=== PATIENT | female | born 1950 | race Caucasian/White ===

== ENCOUNTER 2021-04-12 20:07 | Inpatient (IN) | payer OTHER ==
[~2021-04-12] VITALS: Ht 165.1 cm; Wt 167.9 kg
[2021-04-12] MEDS: buPROPion **SR TABLET** (ZYBAN) 150MG PO SCH (21:00)
[2021-04-12 21:29] LABS: BASO # 0.1 10^3/uL (0.0-0.2); BASO % 0.8 % (0.0-1.0); EOS # 0.1 10^3/uL (0.0-0.5); HEMATOCRIT 40.4 % (36.0-47.0); HEMOGLOBIN 12.5 g/dl (12.0-15.5); LYMPH # 1.2 10^3/uL (1.5-5.0); LYMPH % 10.3 % (24.0-44.0); MEAN CORPUSCULAR HEMOGLOBIN 27.3 pg (27.0-33.0); MEAN CORPUSCULAR HGB CONC 30.9 g/dl (32.0-36.5); MEAN CORPUSCULAR VOLUME 88.2 fl (80.0-96.0); MONO # 0.8 10^3/uL (0.0-0.8); MONO % 6.5 % (2.0-8.0); NEUTROPHILS # 9.6 10^3/uL (1.5-8.5); NEUTROPHILS % 81.1 % (36.0-66.0); PLATELET COUNT, AUTOMATED 246 10^3/uL (150-450); RED BLOOD COUNT 4.58 10^6/uL (4.00-5.40); WHITE BLOOD COUNT 11.9 10^3/uL (4.0-10.0)
[2021-04-12 21:59] LABS: ALBUMIN 3.5 GM/DL (3.2-5.2); ALT/SGPT 24 U/L (12-78); BILIRUBIN,DIRECT 0.1 MG/DL (0.0-0.2); BILIRUBIN,TOTAL 0.4 MG/DL (0.2-1.0); BLOOD UREA NITROGEN 12 MG/DL (7-18); C REACTIVE PROTEIN QUANTITATIV 0.32 MG/DL (0.00-0.30); CARBON DIOXIDE LEVEL 27 MEQ/L (21-32); CHLORIDE LEVEL 108 MEQ/L (98-107); CREATININE FOR GFR 0.69 MG/DL (0.55-1.30); ERYTHROCYTE SEDIMENTATION RATE 31 mm/hr (0-30); GLOMERULAR FILTRATION RATE > 60.0 (>45); GLUCOSE, FASTING 184 MG/DL (70-100); POTASSIUM SERUM 3.8 MEQ/L (3.5-5.1); SODIUM LEVEL 142 MEQ/L (136-145); TOTAL PROTEIN 7.5 GM/DL (6.4-8.2)
[2021-04-12] MEDS ORDERED: MOM 30ML SUSPENSION UDC PO PRN (23:30)
[2021-04-12] MEDS ORDERED: MAALOX 30 ML SUSP *UDC PO PRN (23:30)
--- NOTE | 2021-04-12 23:32 | HPEPDOC ---
[facility] Medical History & Physical Date of Admission Apr 12, 2021 Date of Service: Apr 12, 2021 Attending Physician: RONAN LANDRUM MD History and Physical TIME OF SERVICE: 11:42 PM CHIEF COMPLAINT: Lower extremity blisters HISTORY OF PRESENT ILLNESS: Ms. Rodríguez, a 70-year-old female, presented with complaints of open sores on the back of her lower legs for about 3 weeks which she has unsuccessfully been trying to manage with bacitracin ointment. She has a history of bilateral lower extremity lymphedema and used to receive lymphedema wrap, but has not done so recently. Both lower legs have been more swollen than usual. She has also developed burning pain affecting both lower extremities. She has not been attending her wound care because she cannot get rides to the appointments and the co-pays are too expensive. She denied having fevers chills nausea vomiting or diarrhea but mentioned that for over the last year she has been sleeping sitting up in a recliner. Whenever she tries to lie down flat she feels anxious and like she cannot breathe. She has chronic shortness of breath while trying to clean or walk more than 1 block. She denies missing any doses of her hydrochlorothiazide. REVIEW OF SYSTEMS: 10 point review of systems negative except as listed in HPI PAST MEDICAL/ SURGICAL HISTORY: Essential hypertension, IDDM, DLP, anxiety, depression COPD, aortic stenosis is undergoing work-up to determine if she is a candidate for TAVR, bilateral lower extremity lymphedema, class III obesity, cholecystectomy SOCIAL HISTORY: She smokes FAMILY HISTORY: Cancer ALLERGIES: Please see below. HOME MEDICATIONS: Please see below. PHYSICAL EXAMINATION: Vital Signs Date Time Temp Pulse Resp B/P (MAP) Pulse Ox O2 Delivery O2 Flow Rate FiO2 04/12/21 20:08 98.5 81 20 113/53 (73) 92 Room Air GEN: well nourished / well developed/ NAD INTEGUMENT: Both lower legs are red but not warm there are bullous round raised thickened lesions covering the anterior and posterior aspect of both lower legs and feet. On the posterior aspect of the lower legs there are small flat ulcers draining purulent fluid HEENT: lips acyanotic /mucus membranes pink but slightly dry/ sclera anicteric CVS: RRR/NMRG/her neck is short therefore I am unable to assess for JVP /she has bilateral lower extremity edema LUNGS: able to speak full sentences without stopping to take a breath / no cough ing / lungs are clear to auscultation bilaterally on room air ABDOMEN: Contour concave / soft & not tender with palpation MSK/EXTREMITIES: normocephalic / atraumatic / range of motion intact in all 4 extremities NEURO: CN 2-12 are grossly intact / speech is not dysarthric PSYCH: alert and oriented to person place and time/ able to understand and follow all commands LABORATORY DATA: IMAGING: n/a MICROBIOLOGY: Respiratory panel is pending ASSESSMENT: Ms. Rodríguez is a 70-year-old female with HTN, IDDM, DLP, anxiety, depression COPD, aortic stenosis, bilateral lower extremity lymphedema & obesity who is admitted for management of bilateral lower extremity lymphedema. PLAN: 1 Bilateral lymphedema Has likely become worse because she is not receiving lymphedema wraps and is on multiple medications that can cause peripheral edema. Plan: Admit to medical floor/discontinue hold amlodipine & naproxen which can cause lower extremity edema/ elevate legs / follow-up BNP / will consult PT for lymphedema wraps / we will ask the daytime team to consider consulting in the morning /I will hold off starting antibiotics because I do not think she has cellulitis because both lower extremities are affected and her ALT-70 score to diagnose lower extremity cellulitis is 1 (ALT-70 scores of 0-2 suggest that it is unlikely that a patient has true cellulitis and the likelihood of pseudo-cellulitis is greater than 83.3%.) 2 Lactic Acidosis She likely has lactic acidosis due to Metformin use and hypoxemia Plan: hold Metformin /continuous pulse ox 3 IDDM2 The burning in her legs may be due to neuropathy I will hold off starting gabapentin for now because it can also cause peripheral edema Plan: diabetic diet / f/u accuchecks / f/u A1C / hypoglycemia protocol / hold oral anti-glycemics / sliding scale insulin / she is on glargine 47 units BID for now we will start levemir 40 units BID /because she has diabetes and a BMI greater than 35 she is a candidate for bariatric surgery and can follow-up with her PCP for referral on an outpatient basis 4 Essential HTN Plan: Continue with lisinopril and hydrochlorothiazide 5 DLP Plan: Atorvastatin 6 Anxiety / depression Plan: Bupropion and escitalopram 7 COPD Plan: DuoNebs and fluticasone inhalers 8 Aortic stenosis Plan: Follow-up with cardiology team as scheduled 9 Tobacco abuse Plan: Smoking cessation education/nicotine patch 10 Class 3 obesity This complicates her care The mild hypoxemia ( 89% on room air) is likely due to undiagnosed NATHEN. She admits to feeling short of breath and choking at night, being told that she snores, and having unrestful sleep. Plan: She can follow-up with her PCP for referral for formal sleep study, referral to bariatric surgeon, and to discuss starting Saxenda which is indicated in individuals with a BMI greater than 30% with coexisting diabetes or hypertension or dyslipidemia to help with weight control as an adjunct to exercise DVT PROPHYLAXIS: lovenox (her Yonis score is 4 therefore pharmacological prophylaxis is indicated DISPOSITION: home after more than 2 midnight's stay /PFS consult has been placed for home PT and/or home RN Home Medications Scheduled Amlodipine Besylate (Amlodipine Besylate) 10 Mg Tablet, 10 MG PO QHS Atorvastatin Calcium (Atorvastatin Calcium) 20 Mg Tablet, 20 MG PO QHS Bupropion Hcl (Bupropion HCl Sr) 150 Mg Tab.sr.12h, 150 MG PO QHS Cholecalciferol (Vitamin D3) (Vitamin D3) 1,000 Unit Tablet, 1,000 UNITS PO DAILY Escitalopram Oxalate (Lexapro) 20 Mg Tablet, 20 MG PO DAILY Fluticasone/Umeclidin/Vilanter (Trelegy Ellipta 100-62.5-25) 1 Each Blst.w.dev, 1 PUFF INH DAILY Hydrochlorothiazide (Hydrochlorothiazide) 25 Mg Tablet, 25 MG PO DAILY Insulin Aspart (Novolog Flexpen) 100 Unit/1 Ml Insuln.pen, 27 UNITS SC WM Insulin Glargine,Hum.rec.anlog (Toujeo Solostar) 300 Unit/1 Ml Insuln.pen, 47 UNIT SC BID Lisinopril (Lisinopril) 40 Mg Tablet, 40 MG PO DAILY Metformin HCl (Metformin HCl) 500 Mg Tablet, 1,000 MG PO BID Scheduled PRN Naproxen Sodium (Aleve) 220 Mg Tablet, 220 MG PO BID PRN for PAIN LEVEL 1-5 Allergies Coded Allergies: No Known Allergies (Unverified , 04/12/21) A-FIB/CHADSVASC A-FIB History Current/History of A-Fib/PAF?: No Current PO Anticoag Therapy: No RONAN LANDRUM MD Apr 12, 2021 23:32
[2021-04-12] MEDS ORDERED: NOVOINJ3 SC (23:40)
[2021-04-12] MEDS ORDERED: METF-839 PO (23:40)
[2021-04-12] MEDS ORDERED: LEXA1TAB2 PO (23:40)
[2021-04-12] MEDS ORDERED: LISI40TA4 PO (23:40)
[2021-04-12] MEDS ORDERED: D31000TA2 PO (23:40)
[2021-04-12] MEDS ORDERED: TREL1AER INH (23:40)
[2021-04-12] MEDS ORDERED: AMLO1TAB25 PO (23:40)
[2021-04-12] MEDS ORDERED: HYDR-3490 PO (23:40)
[2021-04-12] MEDS ORDERED: TOUJ1.2I SC (23:40)
[2021-04-12] MEDS ORDERED: ATOR1TAB21 PO (23:40)
[2021-04-12] MEDS ORDERED: ALEV220T22 PO (23:40)
[2021-04-12] MEDS ORDERED: BUPR150T5 PO (23:40)
[2021-04-13] MEDS ORDERED: FUROSEMIDE 40MG/4ML VIAL (J1940) IV SCH
[2021-04-13 00:21] LABS: NT-PRO BNP 95 PG/ML (<125)
[2021-04-13 02:41] LABS: RSV AMPLIFICATION NEGATIVE (NEGATIVE)
[2021-04-13 07:26] LABS: HEMATOCRIT 40.6 % (36.0-47.0); HEMOGLOBIN 12.6 g/dl (12.0-15.5); MEAN CORPUSCULAR HEMOGLOBIN 27.2 pg (27.0-33.0); MEAN CORPUSCULAR VOLUME 87.5 fl (80.0-96.0); PLATELET COUNT, AUTOMATED 250 10^3/uL (150-450); RED BLOOD COUNT 4.64 10^6/uL (4.00-5.40); WHITE BLOOD COUNT 11.1 10^3/uL (4.0-10.0)
[2021-04-13 07:44] LABS: BLOOD UREA NITROGEN 10 MG/DL (7-18); CALCIUM LEVEL 9.2 MG/DL (8.8-10.2); CARBON DIOXIDE LEVEL 28 MEQ/L (21-32); CHLORIDE LEVEL 107 MEQ/L (98-107); CREATININE FOR GFR 0.59 MG/DL (0.55-1.30); GLOMERULAR FILTRATION RATE > 60.0 (>45); GLUCOSE, FASTING 133 MG/DL (70-100); POTASSIUM SERUM 3.9 MEQ/L (3.5-5.1); SODIUM LEVEL 143 MEQ/L (136-145)
[2021-04-13] MEDS: IPRATROPIUM 0.5MG/ALBUTEROL 2.5MG INH SOL UD 3ML (DUONEB) NEB SCH (08:09)
[2021-04-13] MEDS: FLUTICASONE HFA 110 MCG 12 GM INHALER (FLOVENT) INH SCH (08:09)
[2021-04-13] MEDS ORDERED: LEVEMIR (INSULIN DETEMIR) 1 UNITS/0.01ML SC SCH (09:00)
[2021-04-13] MEDS: NICOTINE 21MG/24HR 1 EA TRANSDERMAL TD SCH (10:17)
[2021-04-13] MEDS: ESCITALOPRAM OXALATE 10 MG TAB (LEXAPRO) PO SCH (10:18)
[2021-04-13] MEDS: ENOXAPARIN 40MG/0.4ML SYRINGE (J1650 PER 10MG) SC SCH (10:18)
[2021-04-13] MEDS: lisinopriL 40 MG TAB PO SCH (10:19)
[2021-04-13] MEDS: FUROSEMIDE 40 MG TAB PO SCH (11:17)
--- NOTE | 2021-04-13 11:18 | IPN ---
PROGRESS NOTE DATE: 04/13/2021 SUBJECTIVE: Meghana is seen in the ER in the interim bed, admitted with bilateral lymphedema with ruptured bullae and now open areas of bilateral posterior lower extremities. Has a history of Type 2 diabetes with neuropathy, hypertensive heart disease, hyperlipidemia, chronic anxiety and depression, COPD, aortic stenosis, tobacco abuse and morbid obesity. She has baseline hypoxemia, I assume she has right sided heart failure as the etiology of her edema. OBJECTIVE: VITAL SIGNS: Afebrile. Vital signs are stable. O2 saturation 88 to 90% on room air. GENERAL APPEARANCE: Morbidly obese, resting comfortably. HEENT: Unremarkable. NECK: No JVD. LUNGS: Clear. HEART: Regular rhythm, 1/6 systolic ejection murmur. ABDOMEN: Soft, nontender, no masses. EXTREMITIES: 2+ brawny edema of both lower extremities with pinkish tint to the lower legs which is chronic and unchanged. She has denuded bullae on the posterior aspect of both lower legs draining clear fluid. There is no purulence. LABORATORY DATA: White count is 11.1, hemoglobin is 12.6, platelets are 250,000. Sodium is 143, potassium is 3.9, BUN 10, creatinine 0.6, glucose 133. She had an elevated lactate on admission which remained unchanged and there is absolute no evidence that she is septic, does not need to be treated. She had a bunch of blood cultures ordered. IMPRESSION: 1. Bilateral lower extremity edema with open areas. This is a difficult problem. She is being seen by the lymphedema specialists in the Emergency Room. Patient is unable to physically put on compression stockings, she cannot reach down there to put them on and that will severely limit our ability to deal with this long-term. She is on diuretic therapy and I am changing her from Hydrochlorothiazide to Furosemide with a close eye on her electrolytes on a daily basis. Elevation of legs and salt restriction also reinforced with the patient. Will get a wound care consult from Dr. Alvarenga, the lymphedema specialist is also seeing her. 2. Diabetes with neuropathy. Her Metformin is on hold. I am going to reduce the dose of her basal insulin while she is on an enforced diabetic diet to avoid potential for hypoglycemia. The neuropathy can be addressed by her outpatient provider. 3. Hyperlipidemia, continue on atorvastatin 20 mg daily. 4. Anxiety/depression, continue Wellbutrin 50 mg q.h.s., Lexapro 20 mg daily. 5. Hypertensive heart disease, continue Lisinopril 40 mg daily, watch blood pressure on the augmented diuretic. 6. Tobacco abuse, the importance of smoking cessation discussed. She is on a nicotine patch currently. 7. Suspected cor pulmonale. Echocardiogram ordered. Strongly suggest outpatient attention to sleep apnea with outpatient sleep study advised.
[2021-04-13 14:00] VITALS: BP 134/61
[2021-04-13] MEDS: LEVEMIR (INSULIN DETEMIR) 1 UNITS/0.01ML SC SCH (20:28)
[2021-04-13] MEDS: ATORVASTATIN 20 MG TAB PO SCH (20:28)
[2021-04-13] MEDS: buPROPion **SR TABLET** (ZYBAN) 150MG PO SCH (21:15)
[2021-04-13 22:00] VITALS: BP 126/73
[2021-04-14 06:00] VITALS: BP 138/63
[2021-04-14 06:43] LABS: HEMATOCRIT 40.8 % (36.0-47.0); HEMOGLOBIN 12.7 g/dl (12.0-15.5); MEAN CORPUSCULAR HGB CONC 31.1 g/dl (32.0-36.5); MEAN CORPUSCULAR VOLUME 86.8 fl (80.0-96.0); PLATELET COUNT, AUTOMATED 277 10^3/uL (150-450); WHITE BLOOD COUNT 10.4 10^3/uL (4.0-10.0)
[2021-04-14 07:04] LABS: BLOOD UREA NITROGEN 11 MG/DL (7-18); CALCIUM LEVEL 9.2 MG/DL (8.8-10.2); CARBON DIOXIDE LEVEL 29 MEQ/L (21-32); CHLORIDE LEVEL 105 MEQ/L (98-107); CREATININE FOR GFR 0.62 MG/DL (0.55-1.30); GLOMERULAR FILTRATION RATE > 60.0 (>45); GLUCOSE, FASTING 111 MG/DL (70-100); MAGNESIUM LEVEL 2.2 MG/DL (1.8-2.4); POTASSIUM SERUM 3.8 MEQ/L (3.5-5.1); SODIUM LEVEL 140 MEQ/L (136-145)
[2021-04-14] MEDS: IPRATROPIUM 0.5MG/ALBUTEROL 2.5MG INH SOL UD 3ML (DUONEB) NEB SCH (07:41)
[2021-04-14] MEDS: FLUTICASONE HFA 110 MCG 12 GM INHALER (FLOVENT) INH SCH (07:41)
[2021-04-14] MEDS: NICOTINE 21MG/24HR 1 EA TRANSDERMAL TD SCH (08:27)
[2021-04-14] MEDS: ENOXAPARIN 40MG/0.4ML SYRINGE (J1650 PER 10MG) SC SCH (08:27)
[2021-04-14] MEDS: ESCITALOPRAM OXALATE 10 MG TAB (LEXAPRO) PO SCH (08:28)
[2021-04-14] MEDS: FUROSEMIDE 40 MG TAB PO SCH (08:28)
[2021-04-14] MEDS: lisinopriL 40 MG TAB PO SCH (08:28)
[2021-04-14] MEDS: LEVEMIR (INSULIN DETEMIR) 1 UNITS/0.01ML SC SCH ×2 (09:13→22:11)
--- NOTE | 2021-04-14 12:02 | IPN ---
PROGRESS NOTE DATE: 04/14/2021 SUBJECTIVE: Meghana is [facility] We started some diuresis yesterday and legs are about the same. OBJECTIVE: VITAL SIGNS: Afebrile. Vital signs stable. LUNGS: Clear. HEART: Regular rate and rhythm. ABDOMEN: Soft, nontender. EXTREMITIES: 2+ peripheral edema, venous stasis. Clear drainage from denuded bullae in the back of both legs. LABS: White count 10.4, hemoglobin 12.7. Electrolytes unremarkable. Potassium 3.8. BUN 11, creatinine 0.6. IMPRESSION AND PLAN: 1. Bilateral lower extremity edema with open denuded bullae. She was seen by lymphedema specialist yesterday. Recommends wearing double-layered Tubigrip and elevate legs as much as possible. Plan compression wrapping on Friday. Recommend home health with outpatient PT referral for lymphedema management. 2. Diabetes. Sliding scale insulin with coverage. Basal insulin dose reduced to avoid hypoglycemia. 3. Anxiety and depression. Continue regimen. 4. Hypertension. Continue lisinopril. We added furosemide for diuresis. Watch her blood pressure on this. 5. Suspected cor pulmonale. Echocardiogram ordered.
[2021-04-14 14:00] VITALS: BP 99/56
[2021-04-14 22:00] VITALS: BP 121/57
[2021-04-14] MEDS: ATORVASTATIN 20 MG TAB PO SCH (22:10)
[2021-04-14] MEDS: buPROPion **SR TABLET** (ZYBAN) 150MG PO SCH (22:10)
[2021-04-15 05:32] LABS: HEMATOCRIT 38.9 % (36.0-47.0); HEMOGLOBIN 12.1 g/dl (12.0-15.5); MEAN CORPUSCULAR HEMOGLOBIN 27.4 pg (27.0-33.0); MEAN CORPUSCULAR HGB CONC 31.1 g/dl (32.0-36.5); PLATELET COUNT, AUTOMATED 229 10^3/uL (150-450); RED BLOOD COUNT 4.42 10^6/uL (4.00-5.40); WHITE BLOOD COUNT 9.8 10^3/uL (4.0-10.0)
[2021-04-15 05:52] LABS: BLOOD UREA NITROGEN 12 MG/DL (7-18); CALCIUM LEVEL 8.7 MG/DL (8.8-10.2); CARBON DIOXIDE LEVEL 30 MEQ/L (21-32); CHLORIDE LEVEL 107 MEQ/L (98-107); CREATININE FOR GFR 0.59 MG/DL (0.55-1.30); GLOMERULAR FILTRATION RATE > 60.0 (>45); GLUCOSE, FASTING 143 MG/DL (70-100); MAGNESIUM LEVEL 2.1 MG/DL (1.8-2.4); POTASSIUM SERUM 3.9 MEQ/L (3.5-5.1); SODIUM LEVEL 144 MEQ/L (136-145)
[2021-04-15 06:00] VITALS: BP 141/65
[2021-04-15] MEDS: IPRATROPIUM 0.5MG/ALBUTEROL 2.5MG INH SOL UD 3ML (DUONEB) NEB SCH (07:19)
[2021-04-15] MEDS: FLUTICASONE HFA 110 MCG 12 GM INHALER (FLOVENT) INH SCH (07:19)
[2021-04-15] MEDS: ENOXAPARIN 40MG/0.4ML SYRINGE (J1650 PER 10MG) SC SCH (08:22)
[2021-04-15] MEDS: ESCITALOPRAM OXALATE 10 MG TAB (LEXAPRO) PO SCH (08:22)
[2021-04-15] MEDS: NICOTINE 21MG/24HR 1 EA TRANSDERMAL TD SCH (08:22)
[2021-04-15] MEDS: FUROSEMIDE 40 MG TAB PO SCH ×2 (08:22→16:54)
[2021-04-15] MEDS: lisinopriL 40 MG TAB PO SCH (08:22)
[2021-04-15] MEDS: LEVEMIR (INSULIN DETEMIR) 1 UNITS/0.01ML SC SCH ×2 (08:39→20:10)
[2021-04-15] MEDS: POTASSIUM CHLORIDE 10 MEQ SR TABLET PO SCH (09:22)
[2021-04-15 14:00] VITALS: BP 123/50
--- NOTE | 2021-04-15 15:04 | IPN ---
PROGRESS NOTE DATE: 04/15/2021 SUBJECTIVE: Meghana is here for lymphedema. She has not really diuresed very much. We only got 1 liter net diuresis yesterday. PHYSICAL EXAMINATION: VITAL SIGNS: Stable. LUNGS: Clear. HEART: Regular rate and rhythm. ABDOMEN: Obese, nontender. EXTREMITIES: Lymphedema is unchanged. LABORATORY DATA: CBC and CMP unremarkable. PLAN: Augment diuresis. Would like to get 1 to 1.5 liters per day. Also needs a fluid restriction. She says "I drink all day long," which will certainly work against her diuretic. Anticipate advanced wound care consultation tomorrow.
[2021-04-15] MEDS: ATORVASTATIN 20 MG TAB PO SCH (20:09)
[2021-04-15] MEDS: buPROPion **SR TABLET** (ZYBAN) 150MG PO SCH (20:09)
[2021-04-15 22:00] VITALS: BP 142/71
--- NOTE | 2021-04-15 22:48 | ECHO ---
ECHOCARDIOGRAM DATE OF PROCEDURE: 04/13/2021 Age: 70 Gender: Female Height: Weight: REFERRING PHYSICIAN: Dr. Marian Kovacs PATIENT LOCATION: Room 4235 REASON FOR TESTING: Congestive heart failure MEASUREMENTS: 2D Measurement IVS 1.5 cm LV 5.8 cm LVPW 1.5 cm LA 4.6 cm Aorta 3.3 cm DOPPLER MEASUREMENT Peak velocity across the aorta 2.5 m/s Peak velocity across the LVOT 0.72 m/s Mitral E 0.85 Mitral A 0.78 with ratio of 1.1 2D COMMENTS: 1. Moderately increased left ventricular wall thickness of a low normal global left ventricular systolic function. The left ventricle appeared to be normal in size. 2. Mildly dilated left atrium. The right atrium and right ventricle appear to be normal in limited views. 3. The atrial septum appeared to be normal without evidence of defect or shunt. 4. Normal aortic root. 5. Small pericardial effusion was noted, no evidence of cardiac tamponade. 6. Mildly calcified aortic valve with mildly restricted leaflet motion. Mildly calcified mitral annulus with normal anterior mitral valve leaflet motion. Normal tricuspid valve. The pulmonic valve and proximal pulmonary artery branches were not well visualized. 7. The inferior vena cava appeared to be mildly enlarged. Central venous pressure might be elevated. DOPPLER: No significant valvular regurgitation detected. Assessment of the left ventricular diastolic function appeared to be normal. IMPRESSION: 1. Low normal global left ventricular systolic function with moderate concentric left ventricular hypertrophy. Assessment of the left ventricular diastolic function appeared to be normal. 2. Aortic valve sclerosis with mild aortic stenosis, but no aortic regurgitation. 3. Mildly enlarged left atrium with mitral annular calcification. No evidence of mitral regurgitation or stenosis. 4. A small pericardial effusion was noted, no evidence of cardiac tamponade. 5. the inferior vena cava appeared to be mildly enlarged.
[2021-04-16 06:00] VITALS: BP 133/66
[2021-04-16 06:39] LABS: HEMATOCRIT 40.6 % (36.0-47.0); HEMOGLOBIN 12.7 g/dl (12.0-15.5); MEAN CORPUSCULAR HEMOGLOBIN 26.9 pg (27.0-33.0); MEAN CORPUSCULAR HGB CONC 31.3 g/dl (32.0-36.5); PLATELET COUNT, AUTOMATED 258 10^3/uL (150-450); RED BLOOD COUNT 4.72 10^6/uL (4.00-5.40); WHITE BLOOD COUNT 11.5 10^3/uL (4.0-10.0)
[2021-04-16 07:12] LABS: BLOOD UREA NITROGEN 13 MG/DL (7-18); CARBON DIOXIDE LEVEL 28 MEQ/L (21-32); CHLORIDE LEVEL 108 MEQ/L (98-107); CREATININE FOR GFR 0.62 MG/DL (0.55-1.30); GLOMERULAR FILTRATION RATE > 60.0 (>45); GLUCOSE, FASTING 137 MG/DL (70-100); MAGNESIUM LEVEL 2.1 MG/DL (1.8-2.4); POTASSIUM SERUM 4.1 MEQ/L (3.5-5.1); SODIUM LEVEL 143 MEQ/L (136-145)
[2021-04-16] MEDS: IPRATROPIUM 0.5MG/ALBUTEROL 2.5MG INH SOL UD 3ML (DUONEB) NEB SCH (07:38)
[2021-04-16] MEDS: FLUTICASONE HFA 110 MCG 12 GM INHALER (FLOVENT) INH SCH (07:38)
[2021-04-16] MEDS: ENOXAPARIN 40MG/0.4ML SYRINGE (J1650 PER 10MG) SC SCH (08:36)
[2021-04-16] MEDS: NICOTINE 21MG/24HR 1 EA TRANSDERMAL TD SCH (08:36)
[2021-04-16] MEDS: FUROSEMIDE 40 MG TAB PO SCH ×2 (08:36→17:15)
[2021-04-16] MEDS: POTASSIUM CHLORIDE 10 MEQ SR TABLET PO SCH (08:37)
[2021-04-16] MEDS: lisinopriL 40 MG TAB PO SCH (08:37)
[2021-04-16] MEDS: ESCITALOPRAM OXALATE 10 MG TAB (LEXAPRO) PO SCH (08:37)
[2021-04-16] MEDS: LEVEMIR (INSULIN DETEMIR) 1 UNITS/0.01ML SC SCH ×2 (09:08→21:11)
[2021-04-16] MEDS ORDERED: GLUCOSE 4GM CHEW TABLET PO PRN (10:25)
[2021-04-16] MEDS ORDERED: DEXTROSE 50% 50 ML SYRINGE IV PRN (10:25)
[2021-04-16] MEDS ORDERED: GLUCAGON INJ 1MG VIAL SC PRN (10:25)
--- NOTE | 2021-04-16 10:32 | IPN ---
PROGRESS NOTE DATE: 04/16/2021 SUBJECTIVE: Meghana has had a better diuresis. Her legs are less edematous. She has trouble elevating her legs because it puts pressure on the back of her legs in which she has ulcerations and they are weeping so she has not been able to do that. She has no fever, no chills. Advanced wound care consult planned for today. OBJECTIVE: VITAL SIGNS: Afebrile. LUNGS: Clear. HEART: Regular rhythm. ABDOMEN: Soft, nontender. EXTREMITIES: 2+ edema with venous stasis. The edema is significantly improved from admission. LABORATORY DATA: White count is 11.3, potassium is 4.5, renal function is stable. IMPRESSION: 1. Bilateral lymphedema with open areas. Advanced wound care consult is in progress. The lymphedema specialist has seen her. She is on aggressive furosemide regimen. Anticipate discharge tomorrow with instructions from wound care. 2. Diabetes neuropathy, I am going to restart her Metformin, stop sliding scale with insulin. 3. History of depression/anxiety, continue current regimen. 4. Hypertensive heart disease. Continue on current regimen. She is tolerating the diuresis without hypotension. 5. Tobacco abuse. She is on nicotine patch which is helping. 6. Suspected NATHEN. She should have an outpatient workup for this. 7. Suspected cor pulmonale. She had an echocardiogram done, left ventricular ejection fraction is normal (low normal but still normal). Aortic stenosis. Small pericardial effusion which is not hemodynamically significant. Left atrial dilatation of 46 mm. Pulmonary artery pressures could not be visualized. Strongly suspect cor pulmonale related to NATHEN and obesity. 8. Anticipate discharge tomorrow.
[2021-04-16] MEDS: metFORMIN (GLUCOPHAGE) 500MG TAB PO SCH ×2 (11:11→20:03)
[2021-04-16] MEDS: HumaLOG INSULIN (NovoLOG) PER UNIT SC SCH ×2 (12:59→17:16)
[2021-04-16 14:00] VITALS: BP 123/54
--- NOTE | 2021-04-16 17:37 | CR ---
ADVANCED WOUND CARE CONSULTATION VIA TELEMEDICINE DATE: 04/16/2021 CONSULTATION REQUESTED BY: Ever Tatum M.D. REASON FOR CONSULTATION: Wound care suggestions for lower extremity wounds. Wound care telemedicine provides a visual assessment of a wound or wounds without the benefit of physical examination. It can assist in establishing a diagnosis and etiology. This allows for initial treatment plan. As wounds often change, it may be necessary to modify the original care. Our recommendations are periodic wound reassessment to monitor treatment. Failure to comply may result in nonhealing of the wound, possible complications and/or a poor outcome. The recommendations given will serve as a treatment option. As I will not be following this patient, this care plan will require the attending physician to give and sign the orders. Upon discharge, outpatient discharge can be scheduled at our wound care center. Patient identified. Verbal consent obtained. HISTORY OF PRESENT ILLNESS: A 70-year-old morbidly obese female admitted for lower extremity discomfort and drainage from both right and left posterior calf wounds. The patient has 4+ chronic edema, sleeps in a recliner and is morbidly obese which severely limits her ambulation. Patient has venous stasis disease with ulceration. At this point, these wounds are fairly superficial, but do involve both right and left lower extremities, more prominent on the left. There is cobblestoning formation of the skin, indicating chronic lymphedema which is often seen in chronic venous disease. TREATMENT RECOMMENDATIONS: Cleanse both wounds with Vashe wound cleanser for 10 minutes. Rinse with saline and pat dry. Use Cavilon advanced skin prep treatment applying to the periwounds of both right and left lower extremities. Follow this with an Optilock dressing. These can be secured with a Kerlix and then Tubigrip stockings should be applied. Dressing should be changed on an every other day basis or as needed. If the Optilock becomes saturated, a Hydrofera Blue transfer foam can be applied first and then covered with the Optilock. Patient should sleep in a bed in mild Trendelenburg position, a dietitian should see the patient regarding her weight, and the patient can be seen in our clinic for followup as outpatient, if she so desires. PERRY
[2021-04-16] MEDS: ATORVASTATIN 20 MG TAB PO SCH (20:03)
[2021-04-16] MEDS: buPROPion **SR TABLET** (ZYBAN) 150MG PO SCH (20:03)
[2021-04-16] MEDS ORDERED: HumaLOG INSULIN (NovoLOG) PER UNIT SC SCH (21:00)
[2021-04-16 22:00] VITALS: BP 135/62
[2021-04-17] MEDS: ACETAMINOPHEN TAB 650MG DOSE (2X325MG) PO PRN ×2 (00:30→05:28)
[2021-04-17 06:00] VITALS: BP 147/71
[2021-04-17 06:26] LABS: HEMATOCRIT 37.6 % (36.0-47.0); HEMOGLOBIN 11.7 g/dl (12.0-15.5); MEAN CORPUSCULAR HEMOGLOBIN 27.1 pg (27.0-33.0); MEAN CORPUSCULAR HGB CONC 31.1 g/dl (32.0-36.5); PLATELET COUNT, AUTOMATED 234 10^3/uL (150-450); RED BLOOD COUNT 4.32 10^6/uL (4.00-5.40); WHITE BLOOD COUNT 10.8 10^3/uL (4.0-10.0)
[2021-04-17 06:47] LABS: BLOOD UREA NITROGEN 14 MG/DL (7-18); CALCIUM LEVEL 8.7 MG/DL (8.8-10.2); CARBON DIOXIDE LEVEL 29 MEQ/L (21-32); CHLORIDE LEVEL 107 MEQ/L (98-107); CREATININE FOR GFR 0.62 MG/DL (0.55-1.30); GLOMERULAR FILTRATION RATE > 60.0 (>45); GLUCOSE, FASTING 129 MG/DL (70-100); POTASSIUM SERUM 3.6 MEQ/L (3.5-5.1); SODIUM LEVEL 141 MEQ/L (136-145)
[2021-04-17] MEDS: FLUTICASONE HFA 110 MCG 12 GM INHALER (FLOVENT) INH SCH (07:50)
[2021-04-17] MEDS: IPRATROPIUM 0.5MG/ALBUTEROL 2.5MG INH SOL UD 3ML (DUONEB) NEB SCH (07:51)
[2021-04-17] MEDS: ENOXAPARIN 40MG/0.4ML SYRINGE (J1650 PER 10MG) SC SCH (08:16)
[2021-04-17] MEDS: HumaLOG INSULIN (NovoLOG) PER UNIT SC SCH ×2 (08:17→13:04)
[2021-04-17] MEDS: LEVEMIR (INSULIN DETEMIR) 1 UNITS/0.01ML SC SCH (08:17)
[2021-04-17] MEDS: NICOTINE 21MG/24HR 1 EA TRANSDERMAL TD SCH (08:18)
[2021-04-17] MEDS: POTASSIUM CHLORIDE 10 MEQ SR TABLET PO SCH (08:19)
[2021-04-17] MEDS: lisinopriL 40 MG TAB PO SCH (08:19)
[2021-04-17] MEDS: ESCITALOPRAM OXALATE 10 MG TAB (LEXAPRO) PO SCH (08:19)
[2021-04-17] MEDS: FUROSEMIDE 40 MG TAB PO SCH (08:19)
[2021-04-17] MEDS: metFORMIN (GLUCOPHAGE) 500MG TAB PO SCH (08:19)
--- NOTE | 2021-04-17 12:58 | DS.PDOC ---
Discharge Summary General Date of Admission Apr 12, 2021 at 23:57 Date of Discharge 04/17/21 Attending Physician: BECKY OJEDA MD Discharge Summary PROCEDURES PERFORMED DURING STAY: None. ADMITTING DIAGNOSES: 1. Bilateral lower extremity lymphedema. DISCHARGE DIAGNOSES: 1. Bilateral lower extremity lymphedema, depression, anxiety, hypertensive heart disease, cor pulmonale, diabetic neuropathy, diabetes mellitus type COMPLICATIONS/CHIEF COMPLAINT: Lymphedema. HISTORY OF PRESENT ILLNESS: 70 years old obese female admitted with chief complaints of mild pedal edema which is most likely bilateral lymphedema and advanced wound care consult was called patient also was started on diuresis she have achieved maximum good results and she can be discharged home today with follow-up with PCP in 1 week.. HOSPITAL COURSE: [ # Bilateral lymphedema with open areas. Advanced wound care consult is in progress. The lymphedema specialist has seen her. She is on aggressive furosemide regimen. Anticipate discharge today with instructions from wound care. # Diabetes neuropathy, patient restarted back on her Metformin, stop sliding scale with insulin. # History of depression/anxiety, continue current regimen. # Hypertensive heart disease. Continue on current regimen. She is tolerating the diuresis without hypotension. #Tobacco abuse. She is on nicotine patch which is helping. # Suspected NATHEN. She should have an outpatient workup for this. # Suspected cor pulmonale. She had an echocardiogram done, left ventricular ejection fraction is normal (low normal but still normal). Aortic stenosis. Small pericardial effusion which is not hemodynamically significant. Left atrial dilatation of 46 mm. Pulmonary artery pressures could not be visualized. Strongly suspect cor pulmonale related to NATHEN and obesity. #Anticipate discharge today and follow-up with PCP in 1 week DISCHARGE MEDICATIONS: Please see below. ALLERGIES: Please see below. PHYSICAL EXAMINATION ON DISCHARGE: VITAL SIGNS: Please see below. GENERAL: Alert oriented x3 no apparent distress HEENT: PERRLA extraocular muscles intact NECK: Supple no JVD no lymphadenopathy CARDIOVASCULAR EXAMINATION: S1-S2 regular no murmur or thrill heave RESPIRATORY EXAMINATION: Clear to A&P ABDOMINAL EXAMINATION: Soft nontender bowel sounds present no organomegaly EXTREMITIES: Bilateral pedal edema SKIN: Some ulceration at bilateral lower extremities NEUROLOGICAL EXAMINATION: No focal motor or sensory deficits PSYCHIATRIC EXAMINATION: Normal LABORATORY DATA: Please see below. IMAGING: As per radiology reports PROGNOSIS: Good ACTIVITY: As tolerated. DIET: As taken previously preadmission DISCHARGE PLAN: Discharge home follow-up with PCP in 1 week DISPOSITION: . Home DISCHARGE INSTRUCTIONS: 1. As per discharge directions. ITEMS TO FOLLOWUP ON ON OUTPATIENT: 1. Follow-up with PCP in 1 week. DISCHARGE CONDITION: Stable. TIME SPENT ON DISCHARGE: 38 minutes. Vital Signs/I&Os Vital Signs Date Time Temp Pulse Resp B/P (MAP) Pulse Ox O2 Delivery O2 Flow Rate FiO2 04/17/21 06:00 97.2 64 18 147/71 (96) 94 Room Air I&O- Last 24 Hours up to 6 AM 04/17/21 06:00 Intake Total 1110 ml Output Total 2200 ml Balance -1090 ml Laboratory Data Labs 24H Laboratory Tests 2 04/16/21 16:43: Bedside Glucose (Misc Panel) 179H 04/16/21 20:15: Bedside Glucose (Misc Panel) 213H 04/17/21 06:10: Nucleated Red Blood Cells % (auto) 0.0, Anion Gap 5L, Glomerular Filtration Rate > 60.0, Calcium Level 8.7L, Magnesium Level 2.0 04/17/21 12:06: Bedside Glucose (Misc Panel) 189H CBC/BMP Laboratory Tests 04/17/21 06:10 FSBS Laboratory Tests Test 04/16/21 16:43 04/16/21 20:15 04/17/21 12:06 Range/Units Bedside Glucose (Misc Panel) 179 213 189 80-115 MG/DL Microbiology Microbiology 04/12/21 Blood Culture - Preliminary, Resulted No Growth after 72 hours. All specime... 04/12/21 Blood Culture - Preliminary, Resulted No Growth after 72 hours. All specime... 04/12/21 Blood Culture - Preliminary, Resulted No Growth after 72 hours. All specime... 04/12/21 Blood Culture - Preliminary, Resulted No Growth after 72 hours. All specime... Discharge Medications Scheduled Amlodipine Besylate (Amlodipine Besylate) 10 Mg Tablet, 10 MG PO QHS, (Reported) Atorvastatin Calcium (Atorvastatin Calcium) 20 Mg Tablet, 20 MG PO QHS, (Reported) Bupropion Hcl (Bupropion HCl Sr) 150 Mg Tab.sr.12h, 150 MG PO QHS, (Reported) Cholecalciferol (Vitamin D3) (Vitamin D3) 1,000 Unit Tablet, 1,000 UNITS PO DAILY, (Reported) Escitalopram Oxalate (Lexapro) 20 Mg Tablet, 20 MG PO DAILY, (Reported) Fluticasone/Umeclidin/Vilanter (Trelegy Ellipta 100-62.5-25) 1 Each Blst.w.dev, 1 PUFF INH DAILY, (Reported) Hydrochlorothiazide (Hydrochlorothiazide) 25 Mg Tablet, 25 MG PO DAILY, (Reported) Insulin Aspart (Novolog Flexpen) 100 Unit/1 Ml Insuln.pen, 27 UNITS SC WM, (Reported) Insulin Glargine,Hum.rec.anlog (Toujeo Solostar) 300 Unit/1 Ml Insuln.pen, 47 UNIT SC BID, (Reported) Lisinopril (Lisinopril) 40 Mg Tablet, 40 MG PO DAILY, (Reported) Metformin HCl (Metformin HCl) 500 Mg Tablet, 1,000 MG PO BID, (Reported) Scheduled PRN Naproxen Sodium (Aleve) 220 Mg Tablet, 220 MG PO BID PRN for PAIN LEVEL 1-5, (Reported) Allergies Coded Allergies: No Known Allergies (Unverified , 04/12/21) BECKY OJEDA MD Apr 17, 2021 12:58
[2021-04-17] MEDS ORDERED: FURO40TA2 PO (13:02)
[2021-04-17] MEDS ORDERED: NICO21PAT TD (13:02)
[2021-04-17] MEDS ORDERED: KLOR10TA76 PO (13:02)
== END 2021-04-17 13:39 | disposition home health service (06) | DRG 607 ==
LOC: M ED 20:07 → M ED INP 20:08 → UNDOADMOB 20:08 → M ED INP 23:57 → ENRESERV 04-13 12:22 → M MSPAV 04-13 13:05
PROVIDERS: ADMIT Internal Medicine; ATTEND Internal Medicine
DX: I89.0 Lymphedema, not elsewhere classified (principal); E87.2 Acidosis; Z68.43 Body mass index [BMI] 50.0-59.9, adult; E11.40 Type 2 diabetes mellitus with diabetic neuropathy, unspecified; E66.01 Morbid (severe) obesity due to excess calories; J44.9 Chronic obstructive pulmonary disease, unspecified; G47.33 Obstructive sleep apnea (adult) (pediatric); I27.81 Cor pulmonale (chronic); I83.008 Varicose veins of unspecified lower extremity with ulcer other part of lower leg; F41.9 Anxiety disorder, unspecified; F32.9 Major depressive disorder, single episode, unspecified; I11.9 Hypertensive heart disease without heart failure; F17.200 Nicotine dependence, unspecified, uncomplicated; Z79.899 Other long term (current) drug therapy; I35.0 Nonrheumatic aortic (valve) stenosis; Z79.4 Long term (current) use of insulin

== ENCOUNTER 2022-09-11 16:23 | Emergency (ER) | payer OTHER ==
[~2022-09-11] VITALS: Ht 165.1 cm; Wt 154.1 kg
[~2022-09-11 16:23] MED LIST: ALEV220T22 PO; AMLO1TAB25 PO; ATOR1TAB21 PO; BUPR-71 PO; FURO40TA2 PO; HYDR-3490 PO; LEXA1TAB2 PO; LISI40TA4 PO; METF-839 PO; NICO21PAT TD; NOVOINJ3 SC; POTA-136 PO; TOUJ1.2I SC; TREL1AER INH; VITA100093 PO
[2022-09-11] MEDS ORDERED: ASPIRIN 81MG CHEW TABLET PO ONE (16:35)
[2022-09-11] MEDS ORDERED: AMIODARONE HCL 150 MG in IV 1 EA IV STA ×2 (17:00→17:56)
[2022-09-11 17:12] LABS: BASO # 0.1 10^3/uL (0.0-0.2); EOS # 0.2 10^3/uL (0.0-0.5); EOS % 1.9 % (0.0-3.0); HEMATOCRIT 41.5 % (36.0-47.0); LYMPH # 1.1 10^3/uL (1.5-5.0); LYMPH % 14.2 % (24.0-44.0); MEAN CORPUSCULAR HGB CONC 31.3 g/dl (32.0-36.5); MEAN CORPUSCULAR VOLUME 86.3 fl (80.0-96.0); MONO # 1.2 10^3/uL (0.0-0.8); MONO % 15.3 % (2.0-8.0); NEUTROPHILS # 5.4 10^3/uL (1.5-8.5); NEUTROPHILS % 67.2 % (36.0-66.0); PLATELET COUNT, AUTOMATED 258 10^3/uL (150-450); RED BLOOD COUNT 4.81 10^6/uL (4.00-5.40); WHITE BLOOD COUNT 8.1 10^3/uL (4.0-10.0)
[2022-09-11 17:27] LABS: INR 1.1; PROTHROMBIN TIME 14.4 SECONDS (12.5-14.5)
[2022-09-11 17:35] LABS: CK-MB VALUE MASS 3.9 NG/ML (<3.6)
[2022-09-11 17:36] LABS: ALBUMIN 3.4 G/DL (3.2-5.2); ALKALINE PHOSPHATASE 56 U/L (46-116); ALT/SGPT 37 U/L (7.0-40); AST/SGOT 69 U/L (<34); BILIRUBIN,DIRECT 0.2 MG/DL (<0.4); BILIRUBIN,TOTAL 0.5 MG/DL (0.3-1.2); BLOOD UREA NITROGEN 11 MG/DL (9-23); CALCIUM LEVEL 9.5 MG/DL (8.3-10.6); CARBON DIOXIDE LEVEL 27 MMOL/L (20-31); CHLORIDE LEVEL 106 MMOL/L (98-107); CPK CREATINE PHOSPHOKINASE 1091 U/L (34-145); CREATININE FOR GFR 0.65 MG/DL (0.55-1.30); GLOMERULAR FILTRATION RATE > 60.0 (>39); GLUCOSE, FASTING 135 MG/DL (74-106); MB/CK RELATIVE INDEX 0.35 (< OR =4); POTASSIUM SERUM 3.2 MMOL/L (3.5-5.1); SODIUM LEVEL 143 MMOL/L (136-145); TOTAL PROTEIN 6.7 G/DL (5.7-8.2)
[2022-09-11 17:38] LABS: THYROID STIMULATING HORMONE 1.891 uIU/ML (0.55-4.78)
[2022-09-11 17:39] LABS: FREE T4 1.25 NG/DL (0.89-1.76)
[2022-09-11] MEDS ORDERED: POTASSIUM CHLORIDE 10MEQ SR TABLET PO ONE (17:40)
[2022-09-11] MEDS ORDERED: ISOVUE-370 76% 100ML VIAL As Ordered ONE (17:47)
[2022-09-11 17:59] LABS: LIPASE 42 U/L (12-53)
[2022-09-11 18:56] LABS: CK-MB VALUE MASS 5.5 NG/ML (<3.6)
[2022-09-11 18:59] LABS: MB/CK RELATIVE INDEX 0.53 (< OR =4)
[2022-09-11] MEDS ORDERED: HEPARIN DRIP 25,000 UNITS in IV 1 EA IV SCH (19:55)
[2022-09-11 20:17] LABS: PARTIAL THROMBOPLASTIN TIME 28.5 SECONDS (24.8-34.2)
[2022-09-11 21:21] LABS: RSV AMPLIFICATION NEGATIVE (NEGATIVE)
[2022-09-11 21:45] LABS: CK-MB VALUE MASS 10.3 NG/ML (<3.6)
[2022-09-11 21:46] LABS: MB/CK RELATIVE INDEX 1.08 (< OR =4)
[2022-09-12 00:16] VITALS: BP 151/88
== END 2022-09-12 00:20 | disposition short-term general hospital (02) ==
LOC: M ED 16:23 → EDBD 16:23 → EDSEX 16:23 → M ED 09-12 00:20
DX: I21.4 Non-ST elevation (NSTEMI) myocardial infarction (principal); E87.6 Hypokalemia; I48.0 Paroxysmal atrial fibrillation; I45.10 Unspecified right bundle-branch block; I44.4 Left anterior fascicular block; E11.9 Type 2 diabetes mellitus without complications; E78.5 Hyperlipidemia, unspecified; F41.9 Anxiety disorder, unspecified; F32.A Depression, unspecified; J44.9 Chronic obstructive pulmonary disease, unspecified; F17.200 Nicotine dependence, unspecified, uncomplicated; E66.9 Obesity, unspecified; Z79.4 Long term (current) use of insulin; Z79.811 Long term (current) use of aromatase inhibitors; Z79.899 Other long term (current) drug therapy
CPT/HCPCS: 71045; 71275; 80048; 80076; 82550; 82553; 83690; 84439; 84443; 84484; 85025; 85610; 85730; 87631; 93005; 93041; 94760; 96365; 96375; 99285; J0282; J1644; Q9967

== ENCOUNTER 2022-11-09 14:59 | Inpatient (IN) | payer OTHER ==
[~2022-11-09] VITALS: Ht 165.1 cm; Wt 144.0 kg
[2022-11-09] MEDS ORDERED: ACETAMINOPHEN TAB 650MG DOSE (2X325MG) PO ONE (15:25)
[2022-11-09 16:03] LABS: BASO # 0.1 10^3/uL (0.0-0.2); BASO % 0.5 % (0.0-1.0); EOS % 0.1 % (0.0-3.0); HEMATOCRIT 39.6 % (36.0-47.0); HEMOGLOBIN 12.5 g/dl (12.0-15.5); LYMPH # 0.8 10^3/uL (1.5-5.0); LYMPH % 4.8 % (24.0-44.0); MEAN CORPUSCULAR HEMOGLOBIN 28.4 pg (27.0-33.0); MEAN CORPUSCULAR HGB CONC 31.6 g/dl (32.0-36.5); MONO # 1.5 10^3/uL (0.0-0.8); MONO % 9.1 % (2.0-8.0); NEUTROPHILS # 14.1 10^3/uL (1.5-8.5); PLATELET COUNT, AUTOMATED 163 10^3/uL (150-450); WHITE BLOOD COUNT 16.5 10^3/uL (4.0-10.0)
[2022-11-09 16:25] LABS: ALBUMIN 3.3 G/DL (3.2-5.2); ALKALINE PHOSPHATASE 58 U/L (46-116); ALT/SGPT 19 U/L (7.0-40); AST/SGOT 72 U/L (<34); BILIRUBIN,DIRECT 0.4 MG/DL (<0.4); BILIRUBIN,TOTAL 1.2 MG/DL (0.3-1.2); BLOOD UREA NITROGEN 16 MG/DL (9-23); CALCIUM LEVEL 8.9 MG/DL (8.3-10.6); CARBON DIOXIDE LEVEL 25 MMOL/L (20-31); CHLORIDE LEVEL 101 MMOL/L (98-107); CREATININE FOR GFR 0.63 MG/DL (0.55-1.30); GLOMERULAR FILTRATION RATE > 60.0 (>39); GLUCOSE, FASTING 112 MG/DL (74-106); SODIUM LEVEL 139 MMOL/L (136-145); TOTAL PROTEIN 6.8 G/DL (5.7-8.2)
[2022-11-09 16:50] LABS: ERYTHROCYTE SEDIMENTATION RATE 35 mm/hr (0-30)
[2022-11-09] MEDS: NS 1,000 ML IV SCH ×2 (18:45→22:24)
[2022-11-09] MEDS ORDERED: VANCOMYCIN HCL 2,000 MG in D5W 500 ML IV ONE (18:55)
[2022-11-09] MEDS ORDERED: CEFEPIME HCL 1 GM in D5W MINI-BAG PLUS 50 ML IV ONE (18:55)
[2022-11-09] MEDS ORDERED: LEXA1TAB PO (19:22)
[2022-11-09] MEDS ORDERED: LISI10TA22 PO (19:22)
[2022-11-09] MEDS ORDERED: FURO40TA2 PO (19:22)
[2022-11-09] MEDS ORDERED: ASPI81TA26 PO (19:23)
[2022-11-09] MEDS ORDERED: ALBU8.5H INH (19:23)
[2022-11-09] MEDS ORDERED: METO1TAB7 PO (19:23)
[2022-11-09] MEDS ORDERED: MED REC COMMENT (19:24)
[2022-11-09] MEDS ORDERED: HOME MED LIST COMPLETE! XX SCH (19:30)
[2022-11-09] MEDS ORDERED: METOCLOPRAMIDE INJ 10MG/2ML VIAL IV ONE (20:00)
[2022-11-09] MEDS ORDERED: VANCOMYCIN HCL 1,000 MG, VIAL MATE ADAPTER 1 EACH in NS 250 ML IV ONE (20:00)
[2022-11-09] MEDS: ACETAMINOPHEN TAB 650MG DOSE (2X325MG) PO PRN ×2 (21:28→23:25)
[2022-11-09] MEDS: VANCOMYCIN HCL 1,000 MG, VIAL MATE ADAPTER 1 EACH in NS 250 ML IV ONE ×2 (21:29→22:25)
[2022-11-09 22:00] VITALS: BP 121/82
[2022-11-09] MEDS ORDERED: ALBUTEROL 90 MCG/ACT 8GM HFA INHALER INH PRN (22:10)
[2022-11-09] MEDS: LEVEMIR (INSULIN DETEMIR) 1 UNITS/0.01ML SC SCH (22:10)
[2022-11-09] MEDS ORDERED: VANCOMYCIN HCL 750 MG, VIAL MATE ADAPTER 1 EACH in NS 250 ML IV SCH (22:15)
[2022-11-09] MEDS ORDERED: LACRILUBE (AKWA TEARS) OPHTH OINT 3.5GM OU ONE (22:20)
[2022-11-09] MEDS ORDERED: GENTAMICIN 120 MG in D5W 50 ML IV ONE (22:30)
[2022-11-09] MEDS ORDERED: NS 1,000 ML IV SCH (23:00)
[2022-11-09] MEDS: HEPARIN SOD (PORCINE) 5000UNITS/ML 1ML VIAL/SYRINGE SQ SCH (23:01)
[2022-11-10] VITALS (17 sets, daily range): BP systolic 116–135; BP diastolic 54–63; O2SAT 91–96
[2022-11-10] MEDS ORDERED: CEFEPIME HCL 2 GM in D5W MINI-BAG PLUS 50 ML IV SCH (03:00)
[2022-11-10] MEDS: HEPARIN SOD (PORCINE) 5000UNITS/ML 1ML VIAL/SYRINGE SQ SCH ×3 (05:36→21:20)
[2022-11-10] MEDS ORDERED: ISOVUE-370 76% 100ML VIAL As Ordered ONE (08:35)
[2022-11-10] MEDS ORDERED: rifAMPin 150MG CAPSULE PO SCH (09:00)
[2022-11-10] MEDS: LEVEMIR (INSULIN DETEMIR) 1 UNITS/0.01ML SC SCH ×2 (09:00→20:02)
[2022-11-10] MEDS: VANCOMYCIN HCL 750 MG, VIAL MATE ADAPTER 1 EACH in D5W 250 ML IV SCH ×2 (09:35→21:20)
[2022-11-10] MEDS: ACETAMINOPHEN TAB 650MG DOSE (2X325MG) PO PRN (09:35)
[2022-11-10] MEDS: ASPIRIN 81MG ENTERIC TABLET PO SCH (09:36)
[2022-11-10 11:48] LABS: GENTAMICIN LEVEL RANDOM 1.8 UG/ML
[2022-11-10] MEDS ORDERED: DEXTROSE 50% 50ML SYRINGE IV PRN (11:55)
[2022-11-10] MEDS ORDERED: GLUCOSE 4GM CHEW TABLET PO PRN (11:55)
[2022-11-10] MEDS ORDERED: GLUCAGON INJ 1MG VIAL SC PRN (11:55)
[2022-11-10] MEDS ORDERED: GENTAMICIN IV SCH (12:00)
[2022-11-10] MEDS ORDERED: D5W IV SCH (12:00)
[2022-11-10] MEDS: VANCOMYCIN HCL 500 MG in D5W MINI-BAG PLUS 100 ML IV SCH ×2 (12:11→20:01)
[2022-11-10] MEDS: IPRATROPIUM 0.5MG/ALBUTEROL 2.5MG INH SOL UD 3ML (DUONEB) NEB PRN (12:19)
[2022-11-10] MEDS: IPRATROPIUM 0.5MG/ALBUTEROL 2.5MG INH SOL UD 3ML (DUONEB) NEB SCH ×2 (12:19→19:18)
[2022-11-10] MEDS: predniSONE 20 MG TAB PO SCH (12:40)
[2022-11-10] MEDS: LACTOBACILLUS ACIDOPHILUS CAP (BACID) PO SCH (12:41)
[2022-11-10] MEDS: INSULIN LISPRO (NovoLOG) PER UNIT SC SCH ×3 (12:41→20:03)
[2022-11-10] MEDS ORDERED: AMPICILLIN SOD 2 GM in D5W MINI-BAG PLUS 100 ML IV SCH (13:00)
[2022-11-10] MEDS: ESCITALOPRAM OXALATE 10 MG TAB (LEXAPRO) PO SCH (14:07)
[2022-11-10] MEDS: NYSTATIN 100,000 UNITS/GM TOPICAL PWD 15GM TOP SCH ×2 (14:07→21:19)
[2022-11-10] MEDS: buPROPion **SR TABLET** (ZYBAN) 150MG PO SCH ×2 (14:07→20:02)
[2022-11-10] MEDS: METOPROLOL SUCC (TopROL XL) 50MG **XL** TAB PO SCH (14:07)
[2022-11-10] MEDS: AMPICILLIN SOD 2 GM in D5W MINI-BAG PLUS 100 ML IV SCH ×3 (14:12→22:40)
[2022-11-10] MEDS: ATORVASTATIN 20 MG TAB PO SCH (20:02)
[2022-11-11] VITALS (21 sets, daily range): BP systolic 113–152; BP diastolic 56–72; O2SAT 91–97
[2022-11-11] MEDS: ACETAMINOPHEN TAB 650MG DOSE (2X325MG) PO PRN (00:29)
[2022-11-11] MEDS: IPRATROPIUM 0.5MG/ALBUTEROL 2.5MG INH SOL UD 3ML (DUONEB) NEB SCH ×4 (01:03→20:44)
[2022-11-11] MEDS: AMPICILLIN SOD 2 GM in D5W MINI-BAG PLUS 100 ML IV SCH ×6 (01:19→21:32)
[2022-11-11 01:59] LABS: ALBUMIN 2.6 G/DL (3.2-5.2); ALKALINE PHOSPHATASE 58 U/L (46-116); ALT/SGPT 21 U/L (7.0-40); AST/SGOT 49 U/L (<34); BILIRUBIN,TOTAL 0.5 MG/DL (0.3-1.2); BLOOD UREA NITROGEN 14 MG/DL (9-23); CALCIUM LEVEL 8.5 MG/DL (8.3-10.6); CARBON DIOXIDE LEVEL 26 MMOL/L (20-31); CHLORIDE LEVEL 104 MMOL/L (98-107); CREATININE FOR GFR 0.54 MG/DL (0.55-1.30); GLOMERULAR FILTRATION RATE > 60.0 (>39); GLUCOSE, FASTING 218 MG/DL (74-106); POTASSIUM SERUM 3.5 MMOL/L (3.5-5.1); SODIUM LEVEL 139 MMOL/L (136-145); TOTAL PROTEIN 5.8 G/DL (5.7-8.2)
[2022-11-11] MEDS: VANCOMYCIN HCL 750 MG, VIAL MATE ADAPTER 1 EACH in D5W 250 ML IV SCH ×2 (04:13→11:38)
[2022-11-11] MEDS: HEPARIN SOD (PORCINE) 5000UNITS/ML 1ML VIAL/SYRINGE SQ SCH ×3 (05:07→21:32)
[2022-11-11] MEDS: VANCOMYCIN HCL 500 MG in D5W MINI-BAG PLUS 100 ML IV SCH ×2 (05:08→13:08)
[2022-11-11 07:18] LABS: BASO % 0.4 % (0.0-1.0); EOS # 0.1 10^3/uL (0.0-0.5); EOS % 0.5 % (0.0-3.0); HEMOGLOBIN 10.8 g/dl (12.0-15.5); LYMPH # 1.1 10^3/uL (1.5-5.0); LYMPH % 11.2 % (24.0-44.0); MEAN CORPUSCULAR HEMOGLOBIN 28.1 pg (27.0-33.0); MEAN CORPUSCULAR HGB CONC 30.9 g/dl (32.0-36.5); MEAN CORPUSCULAR VOLUME 90.9 fl (80.0-96.0); MONO # 1.2 10^3/uL (0.0-0.8); MONO % 11.7 % (2.0-8.0); NEUTROPHILS # 7.6 10^3/uL (1.5-8.5); NEUTROPHILS % 75.5 % (36.0-66.0); PLATELET COUNT, AUTOMATED 135 10^3/uL (150-450); RED BLOOD COUNT 3.85 10^6/uL (4.00-5.40); WHITE BLOOD COUNT 10.1 10^3/uL (4.0-10.0)
[2022-11-11] MEDS: ESCITALOPRAM OXALATE 10 MG TAB (LEXAPRO) PO SCH (08:38)
[2022-11-11] MEDS: LEVEMIR (INSULIN DETEMIR) 1 UNITS/0.01ML SC SCH ×2 (08:38→21:30)
[2022-11-11] MEDS: ASPIRIN 81MG ENTERIC TABLET PO SCH (08:38)
[2022-11-11] MEDS: buPROPion **SR TABLET** (ZYBAN) 150MG PO SCH ×2 (08:38→21:29)
[2022-11-11] MEDS: predniSONE 20 MG TAB PO SCH (08:38)
[2022-11-11] MEDS: LACTOBACILLUS ACIDOPHILUS CAP (BACID) PO SCH (08:38)
[2022-11-11] MEDS: METOPROLOL SUCC (TopROL XL) 50MG **XL** TAB PO SCH (08:38)
[2022-11-11] MEDS: INSULIN LISPRO (NovoLOG) PER UNIT SC SCH ×4 (08:40→21:00)
[2022-11-11] MEDS: NYSTATIN 100,000 UNITS/GM TOPICAL PWD 15GM TOP SCH ×2 (08:42→21:32)
[2022-11-11] MEDS: LORATADINE 10 MG TAB PO SCH (09:36)
[2022-11-11] MEDS ORDERED: MOM 30ML SUSPENSION UDC PO ONE (15:35)
[2022-11-11] MEDS ORDERED: LIDOCAINE 2% 100MG/5ML SDV (FOR ANES.) As Ordered ONE (15:36)
[2022-11-11] MEDS ORDERED: fentaNYL 100 MCG/2 ML INJECTION As Ordered ONE (15:36)
[2022-11-11] MEDS ORDERED: propofoL 200 MG/20 ML VIAL As Ordered ONE (15:36)
[2022-11-11] MEDS ORDERED: guaiFENesin DM LIQ 10ML UD PO PRN (15:55)
[2022-11-11] MEDS ORDERED: LIDOCAINE VISCOUS 2% SOLN 15ML UDC As Ordered ONE (17:00)
[2022-11-11] MEDS ORDERED: CETACAINE SPRAY 5GM As Ordered ONE (17:00)
[2022-11-11] MEDS: OLOPATADINE 0.1% OPHTH SOL 5ML(PATANOL) OU SCH (17:00)
[2022-11-11] MEDS ORDERED: MIDAZOLAM INJ 2MG/2ML VIAL As Ordered ONE (17:29)
[2022-11-11] MEDS: SENNA 8.6 MG TAB (SENOKOT) PO SCH ×2 (21:00→21:29)
[2022-11-11] MEDS: DOCUSATE SOD LIQ 100MG/10ML UDC PO SCH ×2 (21:00→21:29)
[2022-11-11] MEDS ORDERED: metFORMIN (GLUCOPHAGE) 500MG TAB PO SCH (21:00)
[2022-11-11] MEDS: ATORVASTATIN 20 MG TAB PO SCH (21:30)
[2022-11-12] MEDS: AMPICILLIN SOD 2 GM in D5W MINI-BAG PLUS 100 ML IV SCH ×6 (00:44→21:14)
[2022-11-12] MEDS: VANICREAM MOISTURIZING SKIN CREAM 113GM TUBE TOP SCH ×3 (00:49→21:18)
[2022-11-12] MEDS: IPRATROPIUM 0.5MG/ALBUTEROL 2.5MG INH SOL UD 3ML (DUONEB) NEB SCH ×4 (01:17→19:26)
[2022-11-12 03:46] VITALS: BP 118/60
[2022-11-12] MEDS: POLYVINYL ALCOHOL OPHTH SOLN 15ML (LIQUITEARS) OU PRN ×2 (05:10→21:16)
[2022-11-12 05:25] LABS: BASO # 0.1 10^3/uL (0.0-0.2); BASO % 0.8 % (0.0-1.0); EOS # 0.1 10^3/uL (0.0-0.5); EOS % 0.8 % (0.0-3.0); HEMATOCRIT 35.6 % (36.0-47.0); LYMPH # 2.1 10^3/uL (1.5-5.0); LYMPH % 19.9 % (24.0-44.0); MEAN CORPUSCULAR HEMOGLOBIN 28.2 pg (27.0-33.0); MEAN CORPUSCULAR HGB CONC 30.9 g/dl (32.0-36.5); MEAN CORPUSCULAR VOLUME 91.3 fl (80.0-96.0); NEUTROPHILS # 7.3 10^3/uL (1.5-8.5); NEUTROPHILS % 68.5 % (36.0-66.0); PLATELET COUNT, AUTOMATED 170 10^3/uL (150-450); WHITE BLOOD COUNT 10.6 10^3/uL (4.0-10.0)
[2022-11-12 05:27] LABS: HEMATOCRIT 35.5 % (36.0-47.0); MEAN CORPUSCULAR HEMOGLOBIN 28.4 pg (27.0-33.0); MEAN CORPUSCULAR VOLUME 91.5 fl (80.0-96.0); PLATELET COUNT, AUTOMATED 168 10^3/uL (150-450); RED BLOOD COUNT 3.88 10^6/uL (4.00-5.40); WHITE BLOOD COUNT 10.5 10^3/uL (4.0-10.0)
[2022-11-12 05:51] LABS: BLOOD UREA NITROGEN 12 MG/DL (9-23); CALCIUM LEVEL 8.7 MG/DL (8.3-10.6); CARBON DIOXIDE LEVEL 29 MMOL/L (20-31); CHLORIDE LEVEL 105 MMOL/L (98-107); CREATININE FOR GFR 0.54 MG/DL (0.55-1.30); GLOMERULAR FILTRATION RATE > 60.0 (>39); GLUCOSE, FASTING 75 MG/DL (74-106); POTASSIUM SERUM 3.6 MMOL/L (3.5-5.1); SODIUM LEVEL 142 MMOL/L (136-145)
[2022-11-12] MEDS: HEPARIN SOD (PORCINE) 5000UNITS/ML 1ML VIAL/SYRINGE SQ SCH ×3 (05:58→21:18)
[2022-11-12] MEDS: INSULIN LISPRO (NovoLOG) PER UNIT SC SCH ×4 (07:30→21:15)
[2022-11-12 08:00] VITALS: BP 153/69
[2022-11-12] MEDS: LACTOBACILLUS ACIDOPHILUS CAP (BACID) PO SCH (09:17)
[2022-11-12] MEDS: ASPIRIN 81MG ENTERIC TABLET PO SCH (09:17)
[2022-11-12] MEDS: buPROPion **SR TABLET** (ZYBAN) 150MG PO SCH ×2 (09:17→21:13)
[2022-11-12] MEDS: predniSONE 20 MG TAB PO SCH (09:17)
[2022-11-12] MEDS: ESCITALOPRAM OXALATE 10 MG TAB (LEXAPRO) PO SCH (09:18)
[2022-11-12] MEDS: FUROSEMIDE 40 MG TAB PO SCH (09:18)
[2022-11-12] MEDS: SENNA 8.6 MG TAB (SENOKOT) PO SCH ×2 (09:19→21:14)
[2022-11-12] MEDS: LORATADINE 10 MG TAB PO SCH (09:19)
[2022-11-12] MEDS: DOCUSATE SOD LIQ 100MG/10ML UDC PO SCH ×2 (09:19→21:17)
[2022-11-12] MEDS: METOPROLOL SUCC (TopROL XL) 50MG **XL** TAB PO SCH (09:19)
[2022-11-12] MEDS: LEVEMIR (INSULIN DETEMIR) 1 UNITS/0.01ML SC SCH ×2 (09:20→21:15)
[2022-11-12] MEDS: OLOPATADINE 0.1% OPHTH SOL 5ML(PATANOL) OU SCH ×2 (09:20→17:59)
[2022-11-12] MEDS: NYSTATIN 100,000 UNITS/GM TOPICAL PWD 15GM TOP SCH ×2 (09:30→21:13)
[2022-11-12] MEDS: ACETAMINOPHEN TAB 650MG DOSE (2X325MG) PO PRN (12:25)
[2022-11-12 16:00] VITALS: BP 144/61
[2022-11-12] MEDS ORDERED: FLUCONAZOLE 100 MG TAB PO ONE (17:00)
[2022-11-12 19:19] VITALS: BP 165/72
[2022-11-12] MEDS: ATORVASTATIN 20 MG TAB PO SCH (21:13)
[2022-11-13] MEDS: IPRATROPIUM 0.5MG/ALBUTEROL 2.5MG INH SOL UD 3ML (DUONEB) NEB SCH ×4 (02:00→20:00)
[2022-11-13 04:27] LABS: BASO # 0.1 10^3/uL (0.0-0.2); BASO % 0.8 % (0.0-1.0); EOS # 0.1 10^3/uL (0.0-0.5); EOS % 1.1 % (0.0-3.0); HEMOGLOBIN 10.7 g/dl (12.0-15.5); LYMPH # 1.9 10^3/uL (1.5-5.0); LYMPH % 19.2 % (24.0-44.0); MEAN CORPUSCULAR HEMOGLOBIN 28.2 pg (27.0-33.0); MEAN CORPUSCULAR HGB CONC 31.5 g/dl (32.0-36.5); MEAN CORPUSCULAR VOLUME 89.7 fl (80.0-96.0); MONO % 9.8 % (2.0-8.0); NEUTROPHILS # 6.4 10^3/uL (1.5-8.5); PLATELET COUNT, AUTOMATED 160 10^3/uL (150-450); RED BLOOD COUNT 3.79 10^6/uL (4.00-5.40); WHITE BLOOD COUNT 9.8 10^3/uL (4.0-10.0)
[2022-11-13 04:53] LABS: BLOOD UREA NITROGEN 14 MG/DL (9-23); CALCIUM LEVEL 8.6 MG/DL (8.3-10.6); CARBON DIOXIDE LEVEL 32 MMOL/L (20-31); CHLORIDE LEVEL 105 MMOL/L (98-107); CREATININE FOR GFR 0.51 MG/DL (0.55-1.30); GLOMERULAR FILTRATION RATE > 60.0 (>39); GLUCOSE, FASTING 110 MG/DL (74-106); POTASSIUM SERUM 3.2 MMOL/L (3.5-5.1); SODIUM LEVEL 144 MMOL/L (136-145)
[2022-11-13] MEDS: IPRATROPIUM 0.5MG/ALBUTEROL 2.5MG INH SOL UD 3ML (DUONEB) NEB PRN (05:27)
[2022-11-13] MEDS: HEPARIN SOD (PORCINE) 5000UNITS/ML 1ML VIAL/SYRINGE SQ SCH ×3 (06:05→21:19)
[2022-11-13] MEDS: AMOXICILLIN 500 MG CAP PO SCH ×4 (06:05→21:20)
[2022-11-13] MEDS ORDERED: POTASSIUM CHLORIDE 10MEQ SR TABLET PO ONE (07:15)
[2022-11-13] MEDS: DOCUSATE SOD LIQ 100MG/10ML UDC PO SCH ×3 (09:00→21:00)
[2022-11-13] MEDS: METOPROLOL SUCC (TopROL XL) 50MG **XL** TAB PO SCH (09:12)
[2022-11-13] MEDS: buPROPion **SR TABLET** (ZYBAN) 150MG PO SCH ×2 (09:12→21:20)
[2022-11-13] MEDS: ASPIRIN 81MG ENTERIC TABLET PO SCH (09:12)
[2022-11-13] MEDS: LORATADINE 10 MG TAB PO SCH (09:12)
[2022-11-13] MEDS: SENNA 8.6 MG TAB (SENOKOT) PO SCH ×2 (09:13→21:20)
[2022-11-13] MEDS: FUROSEMIDE 40 MG TAB PO SCH (09:14)
[2022-11-13] MEDS: LACTOBACILLUS ACIDOPHILUS CAP (BACID) PO SCH (09:14)
[2022-11-13] MEDS: predniSONE 20 MG TAB PO SCH (09:14)
[2022-11-13] MEDS: LEVEMIR (INSULIN DETEMIR) 1 UNITS/0.01ML SC SCH ×2 (09:15→21:19)
[2022-11-13] MEDS: INSULIN LISPRO (NovoLOG) PER UNIT SC SCH ×4 (09:15→21:19)
[2022-11-13] MEDS: OLOPATADINE 0.1% OPHTH SOL 5ML(PATANOL) OU SCH ×2 (09:16→17:39)
[2022-11-13] MEDS: POLYVINYL ALCOHOL OPHTH SOLN 15ML (LIQUITEARS) OU PRN (09:16)
[2022-11-13] MEDS: VANICREAM MOISTURIZING SKIN CREAM 113GM TUBE TOP SCH ×3 (09:17→21:23)
[2022-11-13] MEDS: NYSTATIN 100,000 UNITS/GM TOPICAL PWD 15GM TOP SCH ×2 (09:17→21:20)
[2022-11-13] MEDS: ESCITALOPRAM OXALATE 10 MG TAB (LEXAPRO) PO SCH (10:01)
[2022-11-13 16:12] LABS: BODY FLUID CULTURE Not indicated. (.); LEGIONELLA ANTIGEN URINE Negative (Negative); ORGANISM ID Not indicated. (.); SPECIMEN SOURCE Urine (.); URINE STREP PNEUMONIAE ANTIGEN Negative (Negative)
[2022-11-13] MEDS ORDERED: OLANZapine INTRAMUSCULAR 10MG VIAL IM ONE (18:50)
[2022-11-13 20:26] VITALS: BP 149/67
[2022-11-13] MEDS: ATORVASTATIN 20 MG TAB PO SCH (21:20)
[2022-11-14] MEDS: IPRATROPIUM 0.5MG/ALBUTEROL 2.5MG INH SOL UD 3ML (DUONEB) NEB SCH ×2 (02:13→07:57)
[2022-11-14 05:35] VITALS: BP 168/84
[2022-11-14 05:57] LABS: BASO # 0.1 10^3/uL (0.0-0.2); BASO % 0.7 % (0.0-1.0); EOS # 0.2 10^3/uL (0.0-0.5); EOS % 1.8 % (0.0-3.0); HEMOGLOBIN 11.3 g/dl (12.0-15.5); LYMPH # 2.2 10^3/uL (1.5-5.0); LYMPH % 20.5 % (24.0-44.0); MEAN CORPUSCULAR HEMOGLOBIN 28.6 pg (27.0-33.0); MEAN CORPUSCULAR HGB CONC 31.4 g/dl (32.0-36.5); MEAN CORPUSCULAR VOLUME 91.1 fl (80.0-96.0); NEUTROPHILS % 64.8 % (36.0-66.0); PLATELET COUNT, AUTOMATED 182 10^3/uL (150-450); RED BLOOD COUNT 3.95 10^6/uL (4.00-5.40); WHITE BLOOD COUNT 10.8 10^3/uL (4.0-10.0)
[2022-11-14] MEDS: HEPARIN SOD (PORCINE) 5000UNITS/ML 1ML VIAL/SYRINGE SQ SCH ×2 (05:57→13:17)
[2022-11-14 06:24] LABS: BLOOD UREA NITROGEN 14 MG/DL (9-23); CALCIUM LEVEL 9.5 MG/DL (8.3-10.6); CARBON DIOXIDE LEVEL 36 MMOL/L (20-31); CHLORIDE LEVEL 105 MMOL/L (98-107); CREATININE FOR GFR 0.58 MG/DL (0.55-1.30); GLOMERULAR FILTRATION RATE > 60.0 (>39); GLUCOSE, FASTING 71 MG/DL (74-106); POTASSIUM SERUM 3.2 MMOL/L (3.5-5.1); SODIUM LEVEL 147 MMOL/L (136-145)
[2022-11-14 08:00] VITALS: BP 152/70
[2022-11-14] MEDS ORDERED: POTASSIUM CHLORIDE 10MEQ SR TABLET PO SCH (09:00)
[2022-11-14] MEDS: INSULIN LISPRO (NovoLOG) PER UNIT SC SCH ×2 (09:21→13:25)
[2022-11-14] MEDS: NYSTATIN 100,000 UNITS/GM TOPICAL PWD 15GM TOP SCH (10:00)
[2022-11-14] MEDS: OLOPATADINE 0.1% OPHTH SOL 5ML(PATANOL) OU SCH (10:00)
[2022-11-14] MEDS: VANICREAM MOISTURIZING SKIN CREAM 113GM TUBE TOP SCH (10:00)
[2022-11-14] MEDS: DOCUSATE SOD LIQ 100MG/10ML UDC PO SCH (10:00)
[2022-11-14] MEDS: LEVEMIR (INSULIN DETEMIR) 1 UNITS/0.01ML SC SCH (10:00)
[2022-11-14] MEDS: predniSONE 20 MG TAB PO SCH (10:12)
[2022-11-14] MEDS: LACTOBACILLUS ACIDOPHILUS CAP (BACID) PO SCH (10:13)
[2022-11-14] MEDS: ASPIRIN 81MG ENTERIC TABLET PO SCH (10:13)
[2022-11-14] MEDS: AMOXICILLIN 500 MG CAP PO SCH (10:13)
[2022-11-14] MEDS: SENNA 8.6 MG TAB (SENOKOT) PO SCH (10:14)
[2022-11-14] MEDS: LORATADINE 10 MG TAB PO SCH (10:15)
[2022-11-14 10:16] VITALS: BP 152/70
[2022-11-14] MEDS: buPROPion **SR TABLET** (ZYBAN) 150MG PO SCH (10:16)
[2022-11-14] MEDS: METOPROLOL SUCC (TopROL XL) 50MG **XL** TAB PO SCH (10:16)
[2022-11-14] MEDS: FUROSEMIDE 40 MG TAB PO SCH (10:17)
[2022-11-14] MEDS: ESCITALOPRAM OXALATE 10 MG TAB (LEXAPRO) PO SCH (10:17)
[2022-11-14] MEDS ORDERED: PRED10TA2 PO (10:59)
[2022-11-14] MEDS ORDERED: POTA-136 PO (10:59)
[2022-11-14] MEDS ORDERED: AMOX500C PO (10:59)
[2022-11-14] MEDS ORDERED: TOUJ1.2I SC (10:59)
[2022-11-14] MEDS ORDERED: RISATAB3 PO (10:59)
[2022-11-14] MEDS ORDERED: POTASSIUM CHLORIDE 10MEQ SR TABLET PO ONE (11:25)
== END 2022-11-14 14:12 | DRG 871 ==
LOC: EDBD 14:59 → M ED 16:02 → M ED INP 19:42 → M PCU 21:43 → M MSPAV 11-13 23:17
PROVIDERS: ADMIT Internal Medicine; ATTEND Internal Medicine
PROC: B246ZZZ Ultrasonography of Right and Left Heart (ICD-10-PCS; 2022-11-10)
PROC: B246ZZ4 Ultrasonography of Right and Left Heart, Transesophageal (ICD-10-PCS; principal; 2022-11-11 17:00)
DX: A40.9 Streptococcal sepsis, unspecified (principal); G93.41 Metabolic encephalopathy; J44.1 Chronic obstructive pulmonary disease with (acute) exacerbation; J98.11 Atelectasis; E66.2 Morbid (severe) obesity with alveolar hypoventilation; J96.11 Chronic respiratory failure with hypoxia; E87.20 Acidosis, unspecified; L03.116 Cellulitis of left lower limb; E87.0 Hyperosmolality and hypernatremia; R65.20 Severe sepsis without septic shock; I27.29 Other secondary pulmonary hypertension; I25.10 Atherosclerotic heart disease of native coronary artery without angina pectoris; J45.909 Unspecified asthma, uncomplicated; I10 Essential (primary) hypertension; E11.42 Type 2 diabetes mellitus with diabetic polyneuropathy; F32.A Depression, unspecified; I25.2 Old myocardial infarction; F41.9 Anxiety disorder, unspecified; F17.200 Nicotine dependence, unspecified, uncomplicated; E87.6 Hypokalemia; I49.5 Sick sinus syndrome; I89.0 Lymphedema, not elsewhere classified; Z66 Do not resuscitate; L30.4 Erythema intertrigo; K59.00 Constipation, unspecified; B37.2 Candidiasis of skin and nail; I34.0 Nonrheumatic mitral (valve) insufficiency; I70.0 Atherosclerosis of aorta; Z95.3 Presence of xenogenic heart valve; Z90.49 Acquired absence of other specified parts of digestive tract; Z79.899 Other long term (current) drug therapy; Z79.82 Long term (current) use of aspirin; Z79.4 Long term (current) use of insulin; Z95.0 Presence of cardiac pacemaker